=== PATIENT | female | born 1980 | race Caucasian/White ===

== ENCOUNTER 2024-01-01 12:55 | Outpatient (AMB) | payer OTHER, SELFPAY ==
--- NOTE | 2024-01-01 13:00 | AM.OFFWIN_ITS ---
Intake Vital Signs 01/01/24 13:02 Height 5 ft 3 in Weight 247 lb BMI 43.7 BP 140/100 H Blood Pressure Location Lt brachial Position Sitting Pulse 94 Pulse Source Pulse Oximeter Temp 97.2 F Temp Source Temporal Artery Scan Pulse Oximetry (%) 98 Oxygen Delivery Method Room Air Intake Visit Reasons: EP sinus infection Intake Note: pt is here today for sinus infection started 2 days ago Allergies sulfamethoxazole [From BACTRIM] Allergy (Intermediate, Verified 01/01/24 13:05) HIVES trimethoprim [From BACTRIM] Allergy (Intermediate, Verified 01/01/24 13:05) HIVES Do you need a note to return to daycare/school/sports/work: No HPI HPI Comments History of Present Illness Details 43 y/o female patient who presents [facility] with c/o Physical Exam Vital Signs: Last Vital Signs Temp 97.2 F 01/01/24 13:02 Pulse 94 01/01/24 13:02 BP 140/100 H 01/01/24 13:02 Pulse Ox 98 01/01/24 13:02 Oxygen Delivery Method Room Air 01/01/24 13:02 BMI result Body Mass Index 43.7 Const General: comfortable and no acute distress Nutritional Appearance: obese Orientation/consciousness: patient oriented x3 HEENT Head: Yes normocephalic Ears: TM abnormal with fluid behind the TM bilateral General nose exam: Abnormal mucous membranes and turbinates present boggy and erythematous Face and sinus: Yes sinus tenderness Mouth: moist mucous membranes Throat: Yes posterior oropharynx normal Resp Effort & Inspection: normal respiratory effort and able to speak in complete sentences Auscultation: clear to auscultation bilaterally, no crackles, no rales, no rhonchi and no wheezes Cardio Rate: regular rate Rhythm: regular rhythm Neuro General: patient oriented x3 Assessment & Plan Assessment & Plan (1) Acute rhinosinusitis: Code(s): J01.90 - Acute sinusitis, unspecified Plan: - OTC remedies - Acetaminophen for pain relief - Rest and hydrate well with warm fluids. - RTC if not better. Medications: New acetaminophen 1,000 mg (2 x 500 mg) PO Q6H PRN 30 caps 0RF fever J01.90 - Acute sinusitis, unspecified oxymetazoline 0.05% (Afrin (oxymetazoline)) 2 sprays intranasal Q12H 3 days PRN 22 mL 0RF nasal congestion J01.90 - Acute sinusitis, unspecified cetirizine (Zyrtec) 10 mg PO DAILY PRN 30 tabs 0RF allergy symptoms J01.90 - Acute sinusitis, unspecified Coding Level of Care Code Est Pt Level 3 (78742) Diagnoses Acute rhinosinusitis J01.90 Time Spent (min) 15
[2024-01-01 13:02] VITALS: BP 140/100; PULSE 94; TEMP 36.2; O2SAT 98; BMI 43.7
== END 2024-01-01 13:43 | disposition home or self-care (01) ==
PROVIDERS: Visit Provider Nurse Practitioner Family
DX: J01.90 Acute sinusitis, unspecified (principal)
CPT/HCPCS: 99213